=== PATIENT | female | born 1980 | race Caucasian/White ===

== ENCOUNTER 2020-12-18 09:36 | Emergency (ER) | payer MEDICAID ==
[~2020-12-18] VITALS: Ht 160 cm; Wt 67.0 kg
[2020-12-18 09:43] VITALS: BP 119/71
[2020-12-18] MEDS ORDERED: AMOX1TAB16 MT (10:22)
[2020-12-18] MEDS ORDERED: ACETAMINOPHEN 650MG/20.3ML UDC PO ONE (10:30)
== END 2020-12-18 11:39 | disposition home or self-care (01) ==
LOC: ER 09:54
DX: S02.5XXA Fracture of tooth (traumatic), initial encounter for closed fracture (principal); X58.XXXA Exposure to other specified factors, initial encounter; Y93.89 Activity, other specified; Y92.89 Other specified places as the place of occurrence of the external cause; Z88.5 Allergy status to narcotic agent
CPT/HCPCS: 99283